=== PATIENT | male | born 1990 | race Caucasian/White ===

== ENCOUNTER 2016-12-23 09:08 | Emergency (ER) | payer OTHER ==
[~2016-12-23] VITALS: Ht 167.6 cm; Wt 61.5 kg
[2016-12-23 09:13] VITALS: Ht 167.6 cm; Wt 61.5 kg
[2016-12-23] MEDS ORDERED: HYDR25SU23 PR (09:26)
[2016-12-23] MEDS ORDERED: DOCU-144 PO (09:26)
--- NOTE | 2016-12-23 09:29 | ERD ---
ER Documentation Chief Complaint Date/Time DATE: 12/23/16 TIME: 09:27 Chief Complaint Complains of rectal bleed Hx of hemrrhoids HPI 26-year-old male presents complaining of rectal pain with occasional mild bleeding with blood on paper while wiping. He has a history of hemorrhoids and states that this is been going on intermittently for 2 years. He has not seen his regular doctor for this. Denies any abdominal pain, nausea, vomiting, diarrhea. No fever. ROS All systems reviewed and are negative except as per history of present illness. Medications Home Meds Active Scripts Docusate Sodium* (Colace*) 100 Mg Capsule, 100 MG PO TID, #30 CAP Prov:ESTELA LUZ PA-C 12/23/16 Hydrocortisone Acetate (Anusol-Hc) 25 Mg Supp.rect, 1 SUPP NM BID Y for HEMORROID PAIN/ITCHING, #12 SUPP.RECT Prov:ESTELA LUZ PA-C 12/23/16 Allergies Allergies: Coded Allergies: sulfacetamide (Verified Allergy, Intermediate, Hives, 12/23/16) sulfamethoxazole (Verified Allergy, Intermediate, Hives, 12/23/16) trimethoprim (Verified Allergy, Intermediate, Hives, 12/23/16) FmHx Family History: No diabetes Physical Exam Vitals Vital Signs Date Time Temp Pulse Resp B/P Pulse Ox O2 Delivery O2 Flow Rate FiO2 12/23/16 09:13 98.3 66 20 123/74 97 Physical Exam General: well developed, well nourished, alert, nontoxic, no distress Head: normocephalic, atraumatic Eyes: PERRL, normal conjunctiva Neck: Supple, nontender, no lymphadenopathy, no midline tenderness Respiratory: Clear to auscaultation bilaterally, speaks in full sentences, no use of accesory muscles or labored breathing, no rales, ronchi, or wheezing Cardiovascular: RRR, No murmurs GI: soft, non tender, non distended, negative murphys sign, negative mcburneys point tenderness, no cva tenderness bilaterally, no rebound or guarding Rectal: Nonbleeding external hemorrhoids, no fissures Procedures/MDM Patient presents with hemorrhoids. His vitals were all normal. He is otherwise well-appearing. There are nonthrombosed. He is discharged with Colace and Anusol suppositories. Recommended this patient follow up with her primary care doctor within 48 hours or return to the emergency room for any worsening of symptoms. However this time I do believe there is suitable for outpatient management. I answered all their questions and they agreed with the plan and were discharged home. Departure Diagnosis: Primary Impression: External hemorrhoid Condition: Stable Patient Instructions: Hemorrhoids Additional Instructions: Call your primary care doctor TOMORROW for an appointment during the next 1-2 days.See the doctor sooner or return here if your condition worsens before your appointment time. ESTELA LUZ PA-C Dec 23, 2016 09:29
== END 2016-12-23 09:35 | disposition home or self-care (01) ==
LOC: FTE 09:08
DX: K64.4 Residual hemorrhoidal skin tags (principal)
CPT/HCPCS: 99283